=== PATIENT | male | born 1940 | race Caucasian/White ===

== ENCOUNTER → 2018-01-28 12:05 | Outpatient (CLI) | payer MEDICARE, OTHER, SELFPAY ==
--- NOTE | 2018-01-29 18:04 | DI.NM.S_ITS ---
DATE OF SERVICE: 01/28/2018 PROCEDURE: Pharmacological perfusion study. INDICATIONS: Exertional shortness of breath with underlying hypertension, hyperlipidemia. RADIOPHARMACEUTICAL: 26.7 mCi technetium-99m Myoview IV was injected at stress and 24.9 mCi technetium-99m Myoview IV was injected at rest. CARDIAC STRESS: Initially, patient attempted exercise stress test and was able to walk on [place] protocol for about 5 minutes but had shortness of breath and heart rate was not at target. Hence, patient was given IV Lexiscan as per protocol. Patient remained hemodynamically stable. Patient had shortness of breath. Baseline EKG revealed sinus rhythm with sinus bradycardia, rate about 52, with likely left anterior fascicular block and RS-R complex In V1 to V2. During stress, patient had frequent PVCs as well as PACs and short bursts of SVT, rate about 160 without any significant ischemic changes. However, there were baseline artifacts. Patient had 2 episodes of ventricular couplets. 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 During right bundle-branch block and right anterior fascicular block in recovery, there was no significant ischemic changes. RAW DATA: There was increased subdiaphragmatic activity. GATED STUDY: Resting stress LV ejection fraction 64% without any significant wall motion abnormalities. TID ratio is 0.02, which is within normal limits. Resting LV end-diastolic volume is 147 mL. Lung/heart ratio is 0.028, which is within normal limits. MYOCARDIAL PERFUSION SCAN: Resting supine images revealed [id number]- sized [id number] decreased perfusion of inferior wall, inferoapex. During stress supine, there was moderately decreased perfusion of basal inferior wall. During prone images, the majority of that inferior wall defect got resolved suggestive diaphragmatic tissue attenuation artifact. I don't see any reversible ischemia or infarction pattern. CONCLUSION: As far as perfusion scan is concerned, I will call this study likely a normal myocardial perfusion study with evidence of diaphragmatic tissue attenuation artifact which got resolved during prone images. Overall systolic function is preserved. However, patient has poor exercise tolerance. Patient developed shortness of breath during exercise. During Lexiscan infusion, patient developed frequent premature ventricular contractions (PVCs), premature atrial contractions (PACs) as well as short bursts of supraventricular tachycardia (SVT), rate about 160. Then in recovery, patient developed right bundle-branch block and left anterior fascicular block. As far as perfusion scan is concerned, this is a low-risk myocardial perfusion scan. Clinical correlation is recommended. Ryan Gipson - REGAN/cholo/ doc#: [id number]/job#: [id number] dd: 01/29/2018 12:56:00 dt: 01/29/2018 17:49:00 DICTATING MD/COPIES TO: Tierra Marie MD COPIES MNE: CORNELIUS
== END ==
PROVIDERS: PCP Family Medicine; Visit Provider Internal Medicine Cardiovascular Disease
DX: R06.02 Shortness of breath (principal); I10 Essential (primary) hypertension; E78.5 Hyperlipidemia, unspecified
CPT/HCPCS: 78452; 93016; 93017; 93018; A9502; J2785

== ENCOUNTER → 2019-03-30 12:37 | Outpatient (CLI) | payer MEDICARE, OTHER, SELFPAY ==
--- NOTE | 2019-03-30 | DI.MRI.S_ITS ---
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 Abnormal brain MRI. TECHNIQUE: Noncontrast axial T1 spin echo, axial T2 fast spin echo, sagittal and axial FLAIR, coronal T2 fast spin echo, axial gradient echo, axial diffusion and ADC through the brain. After the administration of contrast, axial and coronal T1 spin echo with fat saturation through the brain. COMPARISON: None. FINDINGS: Image quality: Excellent. CSF spaces: Basal cisterns are patent. No extra-axial fluid collections. Ventricles are normal in size and shape. Brain: No midline shift. No intracranial bleeds or masses. No abnormal intracranial enhancement. There is cerebral volume loss for age. There is periventricular white matter chronic small vessel ischemic change. The brainstem appears normal. Diffusion-weighted images demonstrate no acute ischemic insults. No chronic ischemic insults. Normal intravascular flow voids are present. Skull and face: Calvarial marrow is normal in signal. Orbits appear normal. Note is made of bilateral lens replacements. Sinuses: Sinuses and mastoids appear clear. IMPRESSION: No findings of acute or subacute infarction can be seen. Note is made of age-appropriate brain parenchymal volume loss and chronic small vessel ischemic changes. No masses or abnormal enhancement can be seen. Dictated by: Juan Manuel Roman M.D. on 03/30/2019 at 13:40 Approved by: Juan Manuel Roman M.D. on 03/30/2019 at 13:42
== END ==
PROVIDERS: PCP Family Medicine; Visit Provider Family Medicine
DX: F80.89 Other developmental disorders of speech and language (principal); R90.89 Other abnormal findings on diagnostic imaging of central nervous system
CPT/HCPCS: 70553